=== PATIENT | male | born 1990 | race Hispanic/Latino ===

== ENCOUNTER 2016-03-01 21:00 | Emergency (ER) | payer OTHER ==
[~2016-03-01] VITALS: Ht 182.9 cm; Wt 113.4 kg
[~2016-03-01 21:00] MED LIST: MEDROL DOSEPAK1 PAC PO; PROVENTIL0.09 MG/A1 INH; ZOFRAN ODT4 MG PO
[2016-03-01 21:26] VITALS: BP 132/86
[2016-03-01] MEDS ORDERED: MIRALAX17 G1 PO (22:34)
--- NOTE | 2016-03-01 22:35 | ED GI/GU/ABDOMINAL COMPLAINT ---
History of Present Illness General Chief Complaint: General Adult Stated Complaint: CONSTIPATION Source: patient, family Exam Limitations: no limitations Allergies Coded Allergies: NO KNOWN ALLERGIES (07/13/14) Reconcile Medications Albuterol Sulfate (Proventil Hfa) 0.09 MG/Actuation NASRIN 2 PUFF INH Q4H PRN WHEEZING/SHORTNESS OF BREATH Methylprednisolone. (Medrol) 1 PAC PAC 1 PAC PO TAPER wheezing Ondansetron (Zofran Odt) 4 MG ODT 1 TAB PO Q6H PRN NAUSEA Polyethylene Glycol 3350 (Miralax) 17 GRAM POWD.PACK 1 PAC PO DAILY constipation dissolve in water Triage Note: RECEIVED 25 YO MALE C/O BILATERAL MID ABDOMINAL AREA PAIN X 6 MONTHS, NO C/O N/V/D. PAIN MILD 2/10. PT ALSO REPORTS CONSTIPATION AND VIBRATING SENSATION TO ANAL AREA Triage Nurses Notes Reviewed? yes HPI: 25/M with PMH of hemorrhoids and asthma presents to the ED complaining of constipation, intermittent, 2/10, nonradiating bilateral abdominal pain on the level of the umbilicus. Pain started 8 months ago. Patient denies nausea, diarrhea, fever, or chills. He admits eating fast food daily however He denies recent travel or sick contact. Earlier today patient tried to strain as a trial to induce bowel movement, he then felt as if a bag of worms touched his anal area. Patient stated that he does not eat fibers at all. Patient reported smoking marijuana heavily recently and that increase his appetite. (FRANKIE HERNANDEZ,ISMAIL) Vital Signs & Intake/Output Vital Signs & Intake/Output Vital Signs Date Time Temp Pulse Resp B/P Pulse O2 O2 Flow FiO2 Ox Delivery Rate 03/016 97.7 71 20 132/86 98 Room Air ED Intake and Output 03/02 0000 03/01 1200 Intake Total Output Total Balance Patient 113.398 kg Weight Past History Travel History Traveled to [place] past 21 day No Medical History Neurological: NONE EENT: NONE Cardiovascular: NONE Respiratory: asthma Gastrointestinal: NONE Hepatic: NONE Renal: NONE Musculoskeletal: NONE Psychiatric: NONE Endocrine: NONE Blood Disorders: NONE Cancer(s): NONE ASSISTANT LOAN PROCESSOR/Reproductive: NONE Tetanus Vaccine: Surgical History Surgical History: non-contributory Psychosocial History What is your primary language Portuguese Tobacco Use: Current Daily Use Daily Tobacco Use Amount/Type: => 5 Cigarettes daily (FRANKIE HERNANDEZ,ISMAIL) Medical History Any Pertinent Medical History? none Psychosocial History ETOH Use: occasional use Illicit Drug Use: marijuana Family History Hx Contributory? No (NIKKIE CEDEÑO MD) Review of Systems Review of Systems Constitutional: Denies: chills, diaphoresis, fever, weakness. Respiratory: Denies: cough, orthopnea, short of breath. Cardiovascular: Denies: chest pain, orthopena, palpitations. GI: Reports: abdominal pain (mild), constipation. Denies: bloating, diarrhea, distention, nausea, bloody stool, vomiting. Genitourinary: Denies: dysuria. (HORACIO DAVID MD) Review of Systems Neurological/Psychological: Reports: no symptoms. Immunologic/Allergic: Reports: no symptoms. (NIKKIE CEDEÑO MD) Physical Exam Physical Exam General Appearance: well developed/nourished, no apparent distress, alert, awake Eyes: Bilateral: normal appearance, PERRL, EOMI, normal inspection. Respiratory: normal breath sounds, chest non-tender, no respiratory distress Cardiovascular: regular rate/rhythm Gastrointestinal: soft, non-tender, decreased bowel sounds Rectal: patient preferred to do rectal exam as an outpatient with the primary care doctor (FRANKIE HERNANDEZISCOVAL) Physical Exam Ears, Nose, Throat, Mouth: hearing grossly normal, moist mucous membrane Back: normal inspection, normal range of motion, NO cva TENDERNESS Neurologic/Psych: no motor/sensory deficits, awake, alert, oriented x 3, normal gait, normal mood/affect Core Measures ACS in differential dx? No Severe Sepsis Present: No Septic Shock Present: No (NIKKIE CEDEÑO MD) Progress Differential Diagnosis: constipation secondary sedentary lifestyle and low fibers Plan of Care: Patient reported sedentary lifestyle, heavy smoking, heavy marijuana use. His pain started 8 months ago and is stable. The abdominal examination was benign. Patient was prescribed MiraLAX and was told to come back if any fever, chills, nausea, vomiting, abdominal pain started. Or if the symptoms did not resolve. (FRANKIE HERNANDEZISCOVAL) Initial ED EKG: none (NIKKIE CEDEÑO MD) Departure Departure Disposition: HOME OR SELF CARE Condition: Stable Clinical Impression Primary Impression: Constipation Referrals: PATIENT HAS NO PRIMARY CARE DR (PCP/Family) Additional Instructions: Please drink plenty of fluids, increase the fibers and diet, take the prescribed medication. Come back if the symptoms did not improve or get worse. Departure Forms: Customer Survey General Discharge Information Prescriptions: Current Visit Scripts Polyethylene Glycol 3350 (Miralax) 1 PAC PO DAILY 30 Days dissolve in water (FRANKIE HERNANDEZ,[facility]) Resident Co-Sign Statement Statement: ED Attending supervision documentation- [X] I saw and evaluated the patient. I have also reviewed all the pertinent lab results and diagnostic results. I agree with the findings and the plan of care as documented in the Resident's documentation. [X] I have reviewed the ED Record and agree with the Resident's documentation. [] Additions or exceptions (if any) to the Resident's note and plan are summarized below: [Patient presents with constipation. Patient states that he has been eating mainly fast food for the past week. Patient denies any nausea or vomiting. Patient's last bowel movement was yesterday. Patient states that he occasionally gets crampy abdominal pain but does not have any currently. When he gets the crampy abdominal pain is in the left lower quadrant and there is no radiation. There are no aggravating or mitigating factors. At its worst the crampy pain is 4 out of 10. On exam he has normal bowel sounds his abdomen is soft nontender. There is no rebound or guarding. There is no right lower quadrant tenderness.] (DAVIDSON HERNANDEZ,NIKKIE Quezada)
== END 2016-03-01 23:14 ==
LOC: ERH 21:00
DX: K59.00 Constipation, unspecified (principal)